=== PATIENT | male | born 1960 | race Caucasian/White ===

== ENCOUNTER 2017-05-02 02:10 | Observation (INO) ==
[2017-05-02] MEDS ORDERED: WATER IVPB STA (02:15)
[2017-05-02] MEDS ORDERED: FOLIC ACID IVPB STA (02:15)
[2017-05-02] MEDS ORDERED: D5 IVPB STA (02:15)
[2017-05-02] MEDS ORDERED: Folic Acid 1 MG in D5% in Water 50 ML IVPB STA (02:15)
[2017-05-02] MEDS ORDERED: 0.9 % Sodium Chloride 1,000 ML IVC ONE (02:15)
[2017-05-02] MEDS ORDERED: THIAMINE IVPB STA (02:15)
[2017-05-02] MEDS ORDERED: ChlorproMAZINE 25 MG/ML AMPUL IM ONE (02:33)
[2017-05-02] MEDS ORDERED: *HR* LORazepam 2 MG/ML VIAL IVP STA (02:54)
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
[2017-05-02] MEDS ORDERED: *HR* LORazepam 2 MG/ML VIAL IVP ONE ×2 (02:56→12:36)
[2017-05-02 03:04] LABS: Eosinophils % 2.5 %; Hematocrit 47.6 % (37.5-50.1); Hemoglobin 16.2 g/dL (12.9-16.9); Immature Granulocytes % 0.8 % (0-4); Lymphocytes % 35.5 %; Mean Corpuscular Hemoglobin 31.5 pg (28.0-33.3); Mean Corpuscular Volume 92.4 fL (83.0-100.0); Mean Platelet Volume 9.7 fL (9.4-12.4); Monocytes % 14.3 %; Platelet Count 238 K/mcL (140-400); Red Blood Count 5.15 M/mcL (4.19-5.50); Red Cell Distribution Width 14.9 % (11.5-14.5); Segmented Neutrophils % 45.9 %
[2017-05-02 03:05] LABS: Basophils # 0.1 K/mcL (0.0-0.2); Eosinophils # 0.1 K/mcL (0.0-0.6); Lymphocytes # 1.7 K/mcL (0.6-4.6); Monocytes # 0.7 K/mcL (0.0-1.3); Neutrophils # 2.2 K/mcL (1.6-8.9)
[2017-05-02 03:20] LABS: Alanine Aminotransferase 14 Units/L (7-52); Albumin 4.4 g/dL (3.5-5.7); Albumin/Globulin Ratio 1.2 (1.1-2.2); Alkaline Phosphatase 67 Units/L (34-104); Aspartate Amino Transferase 16 Units/L (13-39); BUN/Creatinine Ratio 11 (6-26); Bilirubin,Indirect 0.3 mg/dL (0.0-1.2); Bilirubin,Total 0.3 mg/dL (0.3-1.0); Blood Urea Nitrogen 8 mg/dL (6-20); Calcium 9.5 mg/dL (8.6-10.3); Carbon Dioxide 23 mEq/L (23-29); Chloride 112 mEq/L (98-107); Globulin 3.8 g/dL (2.4-3.5); Glucose 88 mg/dL (70-105); Osmolality,Calculated 290 (280-300); Potassium 4.2 mEq/L (3.5-5.1); Sodium 141 mEq/L (136-145); Total Protein 8.2 g/dL (6.4-8.9); eGFR For African Americans > 60 (> 60); eGFR For Non-African Americans > 60 (> 60)
[2017-05-02] MEDS ORDERED: Nicotine 21 MG PATCH.TD24 TD STA (03:22)
[2017-05-02 03:30] LABS: Acetaminophen < 1.0 mcg/mL (10-30); Ethanol 223 mg/dL (0-10); Salicylate < 5.0 mg/dL (15.0-30.0)
[2017-05-02 03:31] LABS: Thyroid Stimulating Hormone 1.788 mcIU/mL (0.340-5.600)
[2017-05-02 03:32] LABS: Bilirubin,Urine Negative (Negative); Blood,Urine Negative (Negative); Clarity,Urine Clear (Clear); Color,Urine Yellow (Yellow); Glucose,Urine (UA) Normal (Normal); Ketones,Urine Negative (Negative); Leukocyte Esterase,Urine Negative (Negative); Nitrite,Urine Negative (Negative); PH,Urine 6.5 pH Units (5.0-8.0); Protein,Urine Negative (Neg-Trace); Urobilinogen,Urine Normal (Normal)
[2017-05-02 03:36] LABS: Amphetamine Screen,Urine Negative ng/mL (Cutoff=1000); Barbiturate Screen,Urine Negative ng/mL (Cutoff=200); Benzodiazepines Screen,Urine Negative ng/mL (Cutoff=200); Cannabinoid Screen,Urine Positive ng/mL (Cutoff = 50); Cocaine Screen,Urine Negative ng/mL (Cutoff= 300); Opiate Screen,Urine Negative ng/mL (Cutoff=300); Phencyclidine Screen,Urine Negative ng/mL (Cutoff=25)
--- NOTE | 2017-05-02 05:49 | Internal Med History&Physical ---
<Radha Johnston - Last Filed: 05/02/17 06:21> Date of Encounter: 05/02/17 Time of Encounter: 05:43 Assessment and Plan (1) Wernickes encephalopathy Current visit: Yes Status: Acute Patient is sleeping comfortably now and appears in no acute distress. Patient is afebrile and appears intoxicated. Per ER physcian, the patient appeared intoxicated and he had visual hallucinations, right lateral nystagmus on exam, and gait ataxia was observed. Base on patient's presentation and history, it is likely Wernickes encephalopathy. Once the patient is sober, he can be reevaluated again by the AM team. Can consider psych consult base on reevaluation once patient is sober. EKG showed normal sinus rhythm with no acute ischemic changes. There were no previous EKG to compare it too. Labs were unremarkable. Tox screen was positive for (THC) marijuana and alcohol elevated at 223. UA was negative for infection. Per radiology report, head CT showed no acute intracranial abnormalities and xray of right ankle, tibia, and fibula were negative. Patient received thiamine, folic acid, Ativan, and fluids in the ED. 1. Continue to monitor the patient closely. 2. Will continue to administer thiamine and vitamins per protocol. 3. Will give IV fluids. 4. Ativan as needed for agitation and/or seizures. 5. Will order labs in the AM. (2) Alcohol intoxication Current visit: Yes Status: Acute Patient is sleeping comfortably now and appears in no acute distress. Patient is afebrile and appears intoxicated. Patient admits to chronic alcohol use. EKG showed normal sinus rhythm with no acute ischemic changes. There were no previous EKG to compare it too. Labs were unremarkable. Tox screen was positive for (THC) marijuana and alcohol elevated at 223. Will give patient thiamine, vitamins, and IV fluids. Will place patient on CIWA protocol. Will continue to monitor the patient closely. Qualifiers: Complication of substance-induced condition: with delirium Qualified Code(s ): F10.921 - Alcohol use, unspecified with intoxication delirium (3) Hallucinations Current visit: Yes Status: Acute Visual hallucinations may be secondary to alcohol intoxication versus not taking PTSD or mood disorders medications as prescribed. Will continue to monitor the patient closely. Can consider psych consult base on AM team reevaluation of the patient. Internal Medicine - H&P: HPI Chief complaint: visual hallucinations Admitted From: Emergency Dept History of present illness: Mr. Blue is a 56 year old male with a past history of alcohol abuse, PTSD, and mood disorders who present to the ED for evaluation of visual hallucinations. History was unable to be obtained because the patient is intoxicated and sleeping comfortably after he received Ativan for his agitation. He was able to be awaken, but he would not stay awake to answer questions. Per ER physician, the patient was hallucinating upon arrival to the ED. The patient were seeing ants and spiders and had rapid speech with flight of ideas. The patient admits to chronic alcohol use and smoking cigarettes and marijuana on a daily basis. The patient has previously been on medications for PTSD and mood disorder, but he has not been taking his medications as of recently. Unknown medications at this time. Patient states that he lives alone. The patient continues to sleep comfortably after my exam, but he would wake if I shake him and yell out his name. Past Med Surg Social Fam HX - Past Medical History Medical history: no medical history Psychiatric history: no psych history - Social History Smoking Status: Current every day smoker Alcohol use: recent Drug use: unknown Internal Medicine - H&P: Meds 3 Allergy/AdvReac Type Severity Reaction Status Date / Time No Known Allergies Allergy Verified 12/21/16 00:29 All Systems PM: A 10-system review of systems was performed and is negative for pertinent findings except as documented above in the HPI. - Constitutional Vitals: Temp Pulse Resp BP Pulse Ox 97.6 F 82 18 110/73 97 05/02/17 02:13 05/02/17 05:19 05/02/17 05:19 05/02/17 05:19 05/02/17 05:19 General appearance: Present: A&O X 1. Absent: no acute distress Exam: Patient is sleeping and is unable to stay awake to answer my questions. Patient appears intoxicated. - Head Head exam: Present: atraumatic, normocephalic - Eye Eye exam: Present: PERRL, conjuntiva pink, sclera anicteric Pupils: Present: PERRL - Neck Neck exam general surgery: Present: supple, trachea midline. Absent: lymphadenopathy - Respiratory Respiratory exam: Present: CTAB. Absent: accessory muscle use, rales, rhonchi, wheezes - Cardiovascular Cardiovascular exam: Present: RRR, +S1, +S2. Absent: diastolic murmur, gallop, rubs, systolic murmur - GI/Abdominal GI/Abdominal exam: Present: normal bowel sounds, soft, no peritoneal signs. Absent: distended, guarding, tenderness - Extremities Exam Extremities exam: Present: warm, radial pulses palpable and symmetrical. Absent : calf tenderness, cyanotic, pedal edema - Neurological Exam Neurological exam: Present: altered. Absent: facial droop, speech deficit Additional comments: Patient is sleeping and is unable to stay awake to answer my questions. Patient appears intoxicated, but his airway is protected. - Skin Skin exam: Present: dry, intact Internal Med - H&P Results - Labs CBC & Chem 7: 05/02/17 02:52 05/02/17 02:52 <Patti Page - Last Filed: 05/03/17 06:05> Date of Encounter: 05/02/17 Internal Medicine - H&P: HPI History of present illness: Mr. Blue is a 56 year old male All Systems PM: A 10-system review of systems was performed and is negative for pertinent findings except as documented above in the HPI. - Constitutional Vitals: Temp Pulse Resp BP Pulse Ox 97.7 F 100 14 136/80 98 05/03/17 03:23 05/03/17 03:23 05/03/17 03:23 05/03/17 03:23 05/03/17 03:23 Internal Med - H&P Results - Labs CBC & Chem 7: 05/03/17 03:42 05/03/17 03:42 Labs: Short CBC 05/03/17 Range/Units 03:42 WBC 4.2 L (4.3-11.1) K/mcL Hgb 14.0 D (12.9-16.9) g/dL Hct 42.1 (37.5-50.1) % Plt Count 203 (140-400) K/mcL Neutrophils # 2.0 (1.6-8.9) K/mcL BMP 05/03/17 03:42 Sodium 137 Potassium 3.4 L Chloride 108 H Carbon Dioxide 24 BUN 14 Creatinine 0.73 Glucose 105 Calcium 8.7 - Attending Attestation Patient is a 56y/o male admitted for hallucinations and alcohol intoxication. Concern for wernicke's encephalopathy Patient independently seen and examined at bedside. Will continue IV fluids, Folate, Thiamine supplementation CIWA protocol, ativan prn alcohol withdrawals Case discussed with resident physician Radha Johnston, I agree with her documented findings, assessment, and plan except as listed above.
[2017-05-02] MEDS ORDERED: Naloxone 0.4 MG/ML INJ IVP PRN (06:05)
[2017-05-02] MEDS ORDERED: Ondansetron 4 MG/2 ML VIAL IVP PRN (06:05)
[2017-05-02] MEDS ORDERED: *HR* LORazepam 2 MG/ML VIAL IVP PRN ×3 (06:07→06:13)
[2017-05-02] MEDS: Acetaminophen 325 MG TABLET PO PRN (12:11)
[2017-05-02] MEDS: 0.9 % Sodium Chloride 1,000 ML IVC SCH ×2 (13:15→23:19)
--- NOTE | 2017-05-02 14:58 | Internal Med Progress Note ---
Date of Encounter: 05/02/17 Time of Encounter: 14:56 - Assessment and plan (1) Alcohol intoxication Current Visit: Yes Status: Acute Assessment and plan: presented with visual hallucination; in the setting of acute alcohol intoxication. Known history of alcoholism. Patient reports drinking beer and whiskey daily. Last drink evening prior to arrival. BAL 223. Patient reports DTs and seizures with withdrawal in the past. Monitor with CIWA, ativan PRN. Cont thiamine, folic acid. Patient requesting to be transferred to [facility] for inpatient alcohol rehabilitation. Attempted to reach out on 05/02 with no success. Will try again. Qualifiers: Complication of substance-induced condition: with delirium Qualified Code(s ): F10.921 - Alcohol use, unspecified with intoxication delirium (2) DVT prophylaxis Current Visit: Yes Status: Acute Assessment and plan: heparin - Subjective Interval history: Patient is new to me, information obtained from chart review and patient report. He is drowsy but arousable. Says he feels he is having mild withdrawal symptoms with feeling shaky, nauseated and seen different color lights. He does report DTs and seizures with withdrawals. No chest pain or shortness of breath. - Constitutional Vitals: Temp Pulse Resp BP Pulse Ox 98.1 F 87 16 149/96 99 05/02/17 12:46 05/02/17 12:46 05/02/17 12:46 05/02/17 12:46 05/02/17 12:46 General appearance: Present: disheveled, A&O X 3, no acute distress - Head Head exam: Present: atraumatic, normocephalic - Eye Eye exam: Present: PERRL, conjuntiva pink, sclera anicteric Pupils: Present: PERRL - Neck Neck exam general surgery: Present: supple, trachea midline. Absent: lymphadenopathy - Respiratory Respiratory exam: Present: CTAB. Absent: accessory muscle use, rales, rhonchi, wheezes - Cardiovascular Cardiovascular exam: Present: RRR, +S1, +S2. Absent: diastolic murmur, gallop, rubs, systolic murmur - GI/Abdominal GI/Abdominal exam: Present: normal bowel sounds, soft, no peritoneal signs. Absent: distended, tenderness - Extremities Exam Extremities exam: Present: warm, radial pulses palpable and symmetrical. Absent : calf tenderness, cyanotic, pedal edema - Neurological Exam Neurological exam: Present: CN II-XII intact, oriented X3, no focal deficits. Absent: pronater drift, facial droop, speech deficit - Skin Skin exam: Present: dry, intact Internal Medicine: Result - Labs CBC & Chem 7: 05/02/17 02:52 05/02/17 02:52 Consult Discharge Plan - Plan Referrals: NONE,PCP [Primary Care Provider] -
[2017-05-02] MEDS: *HR* Heparin 5,000 UNIT/ML VIAL SQ SCH (17:50)
[2017-05-02] MEDS: *HR* LORazepam 2 MG/ML VIAL IVP PRN (17:57)
[2017-05-02] MEDS ORDERED: Thiamine (B-1) 100 MG, Folic Acid 1 MG, MVI, adult with vitamin K 10 ML in 0.9 % Sodi... IVPB SCH (18:00)
[2017-05-02] MEDS: *HR* HYDROcodone/Acet 5/325 mg TABLET PO PRN (22:08)
[2017-05-03] MEDS: *HR* HYDROcodone/Acet 5/325 mg TABLET PO PRN (04:07)
[2017-05-03] MEDS ORDERED: Nicotine 21 MG PATCH.TD24 TD SCH (04:15)
[2017-05-03 04:46] LABS: Eosinophils # 0.1 K/mcL (0.0-0.6); Eosinophils % 2.6 %; Hematocrit 42.1 % (37.5-50.1); Immature Granulocytes % 0.5 % (0-4); Lymphocytes # 1.3 K/mcL (0.6-4.6); Lymphocytes % 31.4 %; Mean Corpuscular HGB Conc 33.3 g/dL (31.6-35.5); Mean Corpuscular Volume 93.1 fL (83.0-100.0); Monocytes # 0.7 K/mcL (0.0-1.3); Monocytes % 16.7 %; Platelet Count 203 K/mcL (140-400); Red Blood Count 4.52 M/mcL (4.19-5.50); Red Cell Distribution Width 14.7 % (11.5-14.5); Segmented Neutrophils % 47.8 %
[2017-05-03 05:05] LABS: BUN/Creatinine Ratio 19 (6-26); Blood Urea Nitrogen 14 mg/dL (6-20); Calcium 8.7 mg/dL (8.6-10.3); Carbon Dioxide 24 mEq/L (23-29); Chloride 108 mEq/L (98-107); Chol/HDL Ratio 3.1 (0-4.9); Cholesterol 128 mg/dL (< 200); Glucose 105 mg/dL (70-105); HDL Cholesterol 41 mg/dL (40-59); LDL Cholesterol,Calculated 60 mg/dL (0-99); Magnesium 1.8 mg/dL (1.6-2.6); Osmolality,Calculated 285 (280-300); Phosphorous 4.1 mg/dL (2.7-4.5); Potassium 3.4 mEq/L (3.5-5.1); Sodium 137 mEq/L (136-145); Triglycerides 136 mg/dL (< 150); eGFR For African Americans > 60 (> 60); eGFR For Non-African Americans > 60 (> 60)
[2017-05-03] MEDS: *HR* Heparin 5,000 UNIT/ML VIAL SQ SCH (05:20)
[2017-05-03] MEDS ORDERED: Water for inj. (sterile) 10 ML IV ONE (07:57)
[2017-05-03] MEDS: *HR* LORazepam 2 MG/ML VIAL IVP PRN (07:59)
[2017-05-03] MEDS ORDERED: *HR* LORazepam 2 MG/ML VIAL IVP ONE (09:09)
[2017-05-03] MEDS: Acetaminophen 325 MG TABLET PO PRN (09:26)
[2017-05-03 12:09] VITALS: BP 136/90
--- NOTE | 2017-05-03 14:03 | Discharge Summary ---
Date of Encounter: 05/03/17 Time of Encounter: 14:01 - Discharge Diagnosis (1) Alcohol intoxication Priority: Primary Status: Acute Comments: presented with visual hallucination; in the setting of acute alcohol intoxication. Known history of alcoholism. Patient reports drinking beer and whiskey daily. Last drink evening prior to arrival. BAL 223. UDS positive for marijuana. Patient initially stated he wanted to quit drinking and agreed to stay inpatient for alcohol detox. Mentation improved to LOC X4 and patient decided that he was not ready to quit drinking at this time and requested discharge home. No evidence of withdrawal at time of discharge. Strongly encouraged alcohol cessation under medical supervision. Patient follows with the [facility] and says he will look into their alcohol detox program. Qualifiers: Complication of substance-induced condition: with delirium Qualified Code(s ): F10.921 - Alcohol use, unspecified with intoxication delirium - Discharge Medications Allergies/Adverse Reactions: 3 Allergy/AdvReac Type Severity Reaction Status Date / Time No Known Allergies Allergy Verified 12/21/16 00:29 Procedures/tests Complete & Pending: Procedures Performed prior 72 hours Category Date Time Status Venous Doppler [EV venous imaging LE BI] Routine Y 05/02/17 14:57 Completed Date of admission: 05/02/17 05:21 Primary care physician: PCP NONE Consults: 05/02/17 06:14 Consult to Signals Collector/Analyst [CONS] Routine Reason for SW Consult: alcohol intoxication Discharging clinician: Victorina Smith Anticipated date of discharge: 05/03/17 - Patient Status Disposition: Home, Self-Care Condition: Good Overall status at discharge: patient is back to baseline - Discharge Instructions Instructions: Abuse of Alcohol (DC), Alcohol Withdrawal (DC) Follow Up With: NONE,PCP [Primary Care Provider] - Additional Instructions: Please call your primary care physician within 24 hours for the next business day to schedule a follow-up appointment - Diet and Activity Activity: increase activity as tolerated Diet: advance to your usual diet Interval History: Seen and examined at bedside. Mentation improved to baseline; he is alert and oriented 4. He is requesting to go home, says he has Home but Needs to Be Fed. Denies Alcohol Withdrawal Symptoms. Patient States That He Is Not Ready to Quit Drinking at This Time and Needs to Go Home to Do Some Thinking. Advised Patient That If He Was to Stop Drinking He Should Do so under Medical Supervision Due To Risk of DTs, Seizures. Patient Says He Will Follow-Up with the [facility] and There Inpatient Alcohol Detox Program. Hospital course: See assessment and plan for hospital course - Time Spent with Patient Total time spent providing and/or coordinating discharge services: - Constitutional Vitals: Temp Pulse Resp BP Pulse Ox 97.5 F L 84 18 136/90 100 05/03/17 12:15 05/03/17 12:15 05/03/17 12:15 05/03/17 12:15 05/03/17 12:15 General appearance: Present: disheveled, A&O X 3, no acute distress - Head Head exam: Present: atraumatic, normocephalic - Eye Eye exam: Present: PERRL, conjuntiva pink, sclera anicteric Pupils: Present: PERRL - Neck Neck exam general surgery: Present: supple, trachea midline. Absent: lymphadenopathy - Respiratory Respiratory exam: Present: CTAB. Absent: accessory muscle use, rales, rhonchi, wheezes - Cardiovascular Cardiovascular exam: Present: RRR, +S1, +S2. Absent: diastolic murmur, gallop, rubs, systolic murmur - GI/Abdominal GI/Abdominal exam: Present: normal bowel sounds, soft, no peritoneal signs. Absent: distended, tenderness - Extremities Exam Extremities exam: Present: warm, radial pulses palpable and symmetrical. Absent : calf tenderness, cyanotic, pedal edema - Neurological Exam Neurological exam: Present: CN II-XII intact, oriented X3, no focal deficits. Absent: pronater drift, facial droop, speech deficit - Skin Skin exam: Present: dry, intact
--- NOTE | 2017-05-04 15:25 | Electrocardiograph Report ---
[address] [address] Test Date: 2017-05-02 Pat Name: Varinder Blue Department: 103 Room: 3B21 Gender: M Chair And Couch Maker: : [id number] Requested By: Catarino Hughes Order Number: [id number] Reading MD: Loni Manriquez Measurements Intervals [place] Rate: 94 P: 58 [place]: 157 QRS: -31 QRSD: 97 T: 38 QT: 325 QTc: 377 Interpretive Statements SINUS RHYTHM LEFT AXIS DEVIATION [QRS AXIS < -30] Electronically Signed On 05-04-2017 15:23:56 EST by Loni Manriquez
== END 2017-05-03 14:41 | disposition home or self-care (01) ==
LOC: EMEROO 02:10 → 3BNU 02:10
PROVIDERS: ADMIT Internal Medicine Hematology & Oncology; ATTEND Registered Nurse